=== PATIENT | male | born 1970 | race Caucasian/White ===

== ENCOUNTER 2025-03-11 05:00 | Emergency (ER) | payer BC, SELFPAY ==
--- OUTSIDE RECORDS SUMMARY | 2021-07-03 09:01 | XMS_ITS | Continuity of Care Document ---
Author Organization [facility] Address [address] [address] [place] [address] Phone Care Team Providers Care Dining Room Host Name Role Phone Unavailable Unavailable Unavailable Allergies, Adverse Reactions, Alerts Substance Reaction Status Criticality No Known Allergies Active No Inform ation Medications Medication Instructions Dosage Effective Dates (start - stop) Status Comments No Drug Therapy Prescribed Procedures Procedure Date Colonoscopy Flex; W/bx 1/mx Level Iv-surg Path Gross/micro 21 Advance Directives Directive Yes / No Effective Date File Name No Information Encounters Encounter Description Practice Location Reason(s) For Visit Diagnoses Date Provider Providers Copied on Encounter [facility], [address] [address], [place], [place], [id number], [place] tel:[phone] [facility] No Information 1 No Information Referring Provider: Wendy Hernandez, [address] [facility] [address], [place], [address] . tel:[phone] [facility] ([place]) [facility], [address] [address], [place], [place], [id number], [place] tel:[phone] [facility] GI Symptoms or Concerns (chief complaint) Screening ColonoscopyColor ectal polyp detected on colonoscopyEncou nter for screening for malignant neoplasm of colonPolyp of colon Hillary Nguyen. [address] [facility] [address], [place], [place], [id number], [place]. tel:[phone] Referring Provider: Hubert Lee MD, [address] [place], [address]. tel:[phone] [facility], [address] [address], [place], [id number], [place] tel:[phone] [facility] No Information [address], [id number], [place]. tel:[phone] [facility], [address] [address], [place], [id number], [place] tel:[phone] [facility] No Information [address] [place] [address], [id number], [place]. tel:[phone] Family History Family Member Type Diagnosis Age At Onset No Information Immunizations Vaccine Date Status Comments SARS-COV-2 (COVID-19) vaccin e, mRNA, spike protein, LNP, preservative free, 30 mcg/0.3mL dose administered Note: [facility] bi-direct ional interface ; Source: Other Registry SARS-COV-2 (COVID-19) vaccin e, mRNA, spike protein, LNP, preservative free, 30 mcg/0.3mL dose administered Note: [facility] bi-direct ional interface ; Source: Other Registry zoster vaccine recombinant administered N ote: [facility] bi-directional interface ; Source: Other Registry zoster vaccine recombinant administered N ote: [facility] bi-directional interface ; Source: Other Registry Seasonal, quadrivalent, recombinant, injectable influenza vaccine, preservative free administered Note: [facility] bi-direct ional interface ; Source: Other Registry Afluria Qd administered Note: [facility] bi-directional interface ; Source: Other Registry Afluria Qd administered Note: [facility] bi-directional interface ; Source: Other Registry tetanus toxoid, reduced diphtheria toxoid, and acellular pertussis vaccine, adsorbed administered Note: [facility] b i-directional interface ; Source: Other Registry Influenza, seasonal, injecta ble, preservative free administered Note: [facility] bi-direct ional interface ; Source: Other Registry tetanus toxoid, reduced diphtheria toxoid, and acellular pertussis vaccine, adsorbed administered Note: [facility] b i-directional interface ; Source: Other Registry Payers Payer name Insurance type Covered constitution [facility] [id number] Social History Type Description Quantity Date Captured Comments Sex Male Smoking Status No Information Chief Complaint And Reason For Visit No Information Reason For Referral Reason For Referral No Information History Of Present Illness Encounter Date Complaint History Of Prese nt Illness GI Symptoms or Concerns Functional Status Date Functional Assessmen t No Information Medications Administered Medication Instructions Dosage Effective Dates (start - stop) Status Comments No Drug Therapy Prescribed Instructions Date Instruction Additional Infor katherine Colon Cancer Prevention Related to Colorectal polyp detected on colonoscopy Colon Polyps Related to Color ectal polyp detected on colonoscopy Assessments Type Assessment Date No Information Patient Care Teams Name Effective Dates (start - stop) Status Members No Information
[2025-03-11] VITALS (9 sets, daily range): BP systolic 161–167; BP diastolic 102–116; PULSE 65–80; RESP 14–28; TEMP 36.7; O2SAT 91–99; BMI 35.3
--- NOTE | 2025-03-11 05:33 | CRLHL7_ITS ---
For Patients: As a result of the Century Cures Act, medical imaging exams and procedure reports are released immediately into your electronic medical record. You may view this report before your referring provider. If you have questions, please contact your health care provider. INDICATION: Mid abdominal pain TECHNIQUE: CT abdomen and pelvis acquired with 128 cc Isovue 370 IV contrast. COMPARISON: None. FINDINGS: Lower chest: Unremarkable. Liver: Hepatic cyst in segment 8/5. Gallbladder and bile ducts: Gallbladder is distended without cholelithiasis or gallbladder wall edema. No biliary ductal dilation. Pancreas: Unremarkable. Spleen: Unremarkable. Adrenal glands: Unremarkable. Kidneys: Unremarkable. No suspicious masses, stones, or hydronephrosis. GI tract: No obstruction. No significant bowel inflammation. Minimal areas of fecalization of nondilated distal small bowel loops, which can be seen with slow transit. Normal appendix. Vasculature: Abdominal aorta is normal in caliber. Mesenteric arteries are patent. Lymph nodes: No lymphadenopathy. Peritoneum/Abdominal Wall: Unremarkable. No sign of mass or infiltration. No free air or significant free fluid. Pelvis: Unremarkable. Bones: Grade 2 anterolisthesis of L5 on S1 with bilateral pars interarticularis defects. Moderate degenerative disease of the spine at this level. IMPRESSION: No acute findings to explain symptoms. Please note that all CT scans at this facility use dose modulation, iterative reconstruction, and/or weight-based dosing when appropriate to reduce radiation dose to as low as reasonably achievable. Dictated by Marcia Gan MD @ 03/11/2025 6:29:42 AM (Electronically Signed)
--- NOTE | 2025-03-11 05:41 | ED_ITS ---
HPI - General Adult General Chief complaint: Abdominal Pain Stated complaint: Stomach cramps, vomiting Time Seen by Provider: 03/11/25 05:19 Source: patient and family Mode of arrival: ambulatory Limitations: no limitations History of Present Illness HPI narrative: 54-year-old male presents to the emergency department for evaluation of abdominal pain and nausea. This is been ongoing for about a week total. Sara ent had an episode similar to this where he had severe mid abdominal/epigastric area pain accompanied by nausea and vomiting. Symptoms prompted him to present [place] Patient bring some discharge paperwork that shows a CT scan, ultrasound and labs were completed. I do not have the results of those but he reports that everything was normal. He was given some pain medicine and anti nausea medicine and discharged home. Patient reports that he has felt ?off? all week. He has been a little queasy and mildly nauseated. He has not had pain until tonight. Tonight, he had pain started around 7:00 p.m., approximately 10 hours ago. He has not tried taking medication to help with his symptoms. No Tylenol, no ibuprofen, no Maalox or other similar typical treatments. He denies any prior history of abdominal surgery. He does not take any anticoagulants. His last meal was around 7:00 p.m.. No dysuria or lower abdominal pain. Nausea persists. No hematemesis. Denies bloody stools. No fever. No trauma. Did have 2 beers yesterday. Denies prior history of pancreatitis. He reports benign past medical history. He takes no long-term medications, has no allergies. He reports 2 uncomplicated knee replacement surgeries in the past. Nonsmoker. ROS is notable for the GI symptoms only, otherwise denies times 12 systems. Related Data Previous Rx's ?Medication ?Instructions ?Recorded hydrocodone 5 mg-acetaminophen 325 1 tab PO Q8H PRN pa in #7 tabs 03/11/25 mg tablet omeprazole 20 mg capsule,delayed 20 mg PO DAILY #30 ca ps 03/11/25 release Allergies Allergy/AdvReac Type Severity Reaction Status Date / Time No Known Drug Allergies Allergy Verified 03/11/25 05:13 PFSH PFS Social History Smoking Status: Never smoker Second hand tobacco smoke exposure: No How often do you have a drink containing alcohol: never AUDIT-C Alcohol total score: 0 Non-prescribed substance use: denies use Exam Const: Vital Signs, click to edit/add: Vital Signs - 24 hr 03/11/25 05:04 03/11/25 05:43 03/11/25 05:50 Temperature 98.0 F 98.0 F Pulse Rate Pulse Rate [Left P ulse Oximeter] 80 Respiratory Rate 28 H Blood Pressure Blood Pressure [Ri ght Upper Arm] 164/102 H Pulse Oximetry 98 98 Oxygen Delivery Me thod Room Air Oxygen Flow Rate 03/11/25 06:08 03/11/25 06:40 Temperature Pulse Rate 67 Pulse Rate [Left P ulse Oximeter] Respiratory Rate 14 Blood Pressure 165/107 H Blood Pressure [Ri ght Upper Arm] Pulse Oximetry 91 98 Oxygen Delivery Me thod Oxygen Flow Rate 2 Documenting provider has reviewed patient's vital signs: yes Other: Mild distress due to pain. Tries to get his significant other to answer most of his questions for him. Does appear well nourished and well hydrated. HENMT: Common normals: normocephalic, moist oral mucous membranes and oropharynx normal Head and scalp: normocephalic Mouth: oral and palatal mucosa normal Eye: Common normals: conjunctivae normal General eye: normal appearance of both eyes Conjunctiva: conjunctiva(e) normal Neck & C-Spine: Common normals: full ROM and no lymphadenopathy General: normal visual inspection Resp: Common normals: normal respiratory effort, no use of accessory muscles and clear to auscultation bilaterally Effort & inspection: able to speak in complete sentences Auscultation: clear to auscultation bilaterally Cardio: Common normals: regular rate, regular rhythm, S1 normal heart sound, S2 normal heart sound and no murmurs Rate: regular rate Rhythm: regular rhythm Heart sounds: S1 normal and S2 normal GI: Common normals: Normal to inspection, nondistended, normoactive bowel sounds present, soft to palpation, no hepatosplenomegaly and no masses Palpation: soft and no hepatosplenomegaly Other: Tender to epigastrium. No obvious mass. No organomegaly. : Common normals: no CVA tenderness Bladder/kidney exam: no CVA tenderness Back & Pelvis: Common normals: no CVA tenderness and thoracic and lumbar spine normal to inspection Extremity: Common normals: normal to inspection and normal capillary refill Neuro: Common normals: moves all extremities Psych: Common normals: thought process normal and cooperative Thought process: normal thought process Attention/concentration: attention grossly intact Memory/cognition: memory grossly intact Insight: fair Skin: Common normals: no rashes or lesions noted General skin exam: no rashes or lesions noted Course Course ED Course: 54-year-old male with 2nd episode of epigastric/mid abdominal pain suspicious for pancreatitis versus gallbladder disease. Cannot exclude bowel ischemia, gastritis, internal hernia, inflammatory bowel disease, enteritis, referred c hest or cardiac pathology, musculoskeletal etiology, amongst others. Patient is quite uncomfortable currently. Vitals are normal. Will place peripheral IV, give 0.5 mg of Dilaudid, 15 of Toradol and 4 of Zofran. Counseled patient that sometimes the imaging studies can be misleading early in the disease process and repeating these may be helpful. Recommend repeat cardiac and GI labs as well as repeat CT. Consider repeat ultrasound if nondiagnostic. We will not have ultrasound available for a couple of hours. Vital Signs Vital signs: Initial Vital Signs Temperature 98.0 F 03/11/25 05:04 Temperature Source Oral 03/11/25 05:04 Pulse Rate 80 03/11/25 05:04 Pulse Rhythm Regular 03/11/25 05:04 Respiratory Rate 28 H 03/11/25 05:04 Blood Pressure 164/102 H 03/11/25 05:04 Blood Pressure Mean 122 H 03/11/25 05:04 Blood Pressure Position Sitting 03/11/25 05:04 Pulse Oximetry 98 03/11/25 05:04 Oxygen Delivery Method Room Air 03/11/25 05:04 Vital Signs Temperature 98.0 F 03/11/25 05:04 Pulse Rate 80 03/11/25 05:04 Respiratory Rate 28 H 03/11/25 05:04 Blood Pressure 164/102 H 03/11/25 05:04 Pulse Oximetry 98 03/11/25 05:04 Oxygen Delivery Method Room Air 03/11/25 05:04 Temperature 98.0 F 03/11/25 05:43 Pulse Rate 67 03/11/25 06:08 Respiratory Rate 14 03/11/25 06:08 Blood Pressure 165/107 H 03/11/25 06:08 Pulse Oximetry 98 03/11/25 06:40 Oxygen Delivery Method Room Air 03/11/25 05:04 Oxygen Flow Rate 2 03/11/25 06:40 Medications Administered Medications: Discontinued Medications Generic Name Dose Route Start Last Admin Trade Name Orestes PRN Reason Stop Dose Admin Hydromorphone HCl 0.5 mg 03/11/25 05:33 03/11/25 05:44 Hydromorphone 0.5 Mg/0.5 Ml Inj IVP 03/11/25 05:34 0.5 mg ONCE ONE Administration Ketorolac Tromethamine 15 mg 03/11/25 05:33 03/11/25 05:43 Ketorolac 15 Mg/Ml Inj IVP 03/11/25 05:34 15 mg ONCE ONE Administration Ondansetron HCl 4 mg 03/11/25 05:33 03/11/25 05:43 Ondansetron 2 Mg/Ml Inj IVP 03/11/25 05:34 4 mg ONCE ONE Administration Medical Decision Making Lab Data Lab results reviewed: Yes I reviewed the patient's lab results Lab results narrative: Labs reassuring. No signs of significant inflammation, pancreatitis, biliary obstruction, elevated creatinine or electrolyte abnormalities. Labs: Lab Results 03/11/25 03/11/25 Range/Units 05:33 05:45 WBC 9.42 (4.50-11.00) K/uL RBC 5.60 (4.30-5.90) m/uL Hgb 16.6 (13.5-17.5) gm/dL Hct 47.6 (37.0-53.0) % MCV 85 (80-100) fL MCH 30 (26-34) pg MCHC 35 (32-36) gm/dL RDW Coeff of Gucci 12.3 (11.5-15.5) % Plt Count 217 (140-440) K/uL Neut % (Auto) 81.1 H (42.0-72.0) % Lymph % (Auto) 9.9 L (20-44) % Noble % (Auto) 7.3 (0.0-11.0) % Eos % (Auto) 1.2 (0.0-7.0) % Baso % (Auto) 0.3 (0.0-3.0) % Neut # (Auto) 7.60 H (1.7-7.0) K/uL Lymph # (Auto) 0.90 (0.90-2.90) K/uL Noble # (Auto) 0.70 (0.00-0.90) K/UL Eos # (Auto) 0.11 (0.00-0.50) K/uL Baso # (Auto) 0.03 (0.00-0.30) K/uL Abs Immat Gran (auto) 0.02 (0.00-0.30) K/uL Imm/Tot Granulo (auto) 0.2 % Sodium 135 (135-149) mmol/L Potassium 4.9 (3.6-5.1) mmol/L Chloride 103 (96-114) mmol/L Carbon Dioxide 21 (20-32) mmol/L Anion Gap 11 (7-15) mEq/L BUN 15 (7-30) mg/dL Creatinine 0.9 (0.5-1.5) mg/dL Estimated Creat Clear 100.59 Estimated GFR 100 ml/min Glucose 111 (60-115) mg/dL Lactate 2.7 H (0.5-1.9) mmol/L Calcium 9.8 (8.4-10.6) mg/dL Total Bilirubin 1.6 H (0.1-1.5) mg/dL AST 39 H (12-35) U/L ALT 26 (4-50) U/L Alkaline Phosphatase 76 (40-150) U/L C-Reactive Protein 1.6 H (0.5-1.0) mg/dL Total Protein 8.7 H (6.0-8.3) g/dL Albumin 4.8 (3.3-5.0) g/dL Lipase 106 (23-300) U/L POC Troponin I 0.00 L (0.01-0.04) ng/ml Imaging Data CT scan - abdomen: Attestation: I have reviewed the pertinent imaging results. My impression: Normal CT. Radiologist's impression: IMPRESSION: No acute findings to explain symptoms. Please note that all CT scans at this facility use dose modulation, iterative reconstruction, and/or weight-based dosing when appropriate to reduce radiation dose to as low as reasonably achievable. Dictated by Marcia Gan MD @ 03/11/2025 6:29:42 AM Discharge Plan Discharge Clinical Impression: Gastritis Patient Disposition: Home w/ Parent or Adult Condition: Improved Instructions: Gastritis (DC), Diet for Stomach Ulcers and Gastritis (ED), Upper Endoscopy (DC) Additional Instructions: As we discussed, thankfully the emergency room workup was benign again today. There are no signs of severe infection, severe inflammation, pancreatitis, liver disease or other abnormalities. This is great news. I suspect you have gastritis which would not be easily seen on the CT scans or ultrasound that you have already had performed. This is best diagnosed by direct visualization through an endoscopy which is similar to a colonoscopy but visualizes the stomach instead. I would like for you to schedule this with her primary care team. In the interim, I want you to start taking omeprazole 20 mg once daily, 30 minutes before bedtime every night for at least the next 4 weeks. Absolutely no alcohol or carbonated beverages. If the pain becomes severe again, I a.m. giving you a small supply of hydrocodone tablets to use. There are additional biopsies, studies and other workup that would typically be done for this complaint that cannot be performed in a small [facility] emergency room. As we discussed, additionally I would consider doing a HIDA scan which is a different study on the gallbladder if the stomach workup is negative. Activity Level: No Restrictions Prescriptions: New hydrocodone-acetaminophen 5-325 mg tablet 1 tab PO Q8H PRN (Reason: pain) Qty: 7 0RF omeprazole 20 mg capsule,delayed release(DR/EC) 20 mg PO DAILY Qty: 30 3RF Follow Up/Referrals: Provider,Not a Local [Primary Care Provider, Family Practice] Stand Alone Forms: Video Blocks Info Instructions
[2025-03-11] MEDS: ONDANSETRON 2 MG/ML inj 4 MG IVP (05:43)
--- OUTSIDE RECORDS SUMMARY | 2025-03-11 05:44 | XMS_ITS | Encounter Summary ---
Author Organization [facility] Address [address] [place] [address]. [place] [address] Care Team Providers Care Retail Experience Specialist Name Role Phone Morteza Ash MD Primary Care Provider [phone] Hubert Lee MD Primary Care Provider [phone] Hubert Lee MD Unavailable Hubert Lee MD Unavailable Hubert Lee MD Unavailable Antony Buckner MD Unavailable [phone] [facility] Unavail able Joanne Still MD Unavailable Encounter Details Date Type Department Care Team (Late st Contact Info) Description 06/24/2012 MyC Medical Advice [address] [address] [facility] Social History Tobacco Use Types Packs/Day Years Used Date Smoking Tobacco: Never Smokeless Tobacco: Never Alcohol Use Standard Drinks/Week Comments Yes 0 (1 standard drink = 0.6 oz pur e alcohol) occas Sex and Gender Information Value Date Recorded Sex Assigned at Male 12/28/2020 10:12 PM CDT 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 Gender Identity Male 11/30/2020 8:12 AM CDT Sexual Orientation Straight 05/06/2019 3: 41 PM CDT documented as of this encounter Plan of Treatment Not on file documented as of this encounter Visit Diagnoses Not on filedocumented in this encounter Additional Health Concerns Infection Onset Date Last Indicated Resolved Time COVID-19 Comment:Per [facility] on 11/30/20, patient had a positive COVID test on 11/21/20 11/21/2020 12/01/2020 12/11/2020 11:40 PM CDT COVID-19 02/14/2021 02/14/2021 03/07/2021 11:3 9 PM CDT documented as of this encounter Care Teams Retail Experience Specialist Relationship Specialty Start Date End Date Morteza Ash MD PCP - General 12/22/07 10/22/15 Hubert Lee MD [address] [place] [address] [place] [address] PCP - General Internal Medicine 10/23/15 Hubert Lee MD [address] [place] [address] [place] [address] PCP - Assigned PCP 10/07/16 10/27/18 Hubert Lee MD [address] [place] [address] [place] [address] Assigned PCP 10/07/16 10/24/18 Hubert Lee MD [address] [place] [address] [place] [address] Assigned PCP 05/16/19 02/14/24 Antony Buckner MD [address] [place] [address] Assigned Musculoskeletal Provider 01/21/21 07/19/22 Clinic - [facility] [address] [place] [address] Assigned PCP 09/16/24 11/13/24 [place] [address] [place] [place] [address] Assigned PCP 11/14/24 documented as of this encounter
--- OUTSIDE RECORDS SUMMARY | 2025-03-11 05:44 | XMS_ITS | Encounter Summary ---
Author Organization [facility] Address [address] [place] [address]. [place] [address] Care Team Providers Care Tufter Operator Name Role Phone Hubert Lee MD Primary Care Provider [phone] Hubert Lee MD Unavailable Antony Buckner MD Unavailable [phone] [facility] Unavail able Joanne Still MD Unavailable Encounter Details Date Type Department Care Team (Late st Contact Info) Description 06/13/2022 MyC Medical Advice [address] [place] [id number] Joceline Han, AUTHORIZATION MANAGER Social History Tobacco Use Types Packs/Day Years Used Date Smoking Tobacco: Never Smokeless Tobacco: Never Comments:n/a Alcohol Use Standard Drinks/Week Comments Yes 0 (1 standard drink = 0.6 oz pur e alcohol) social - couple of time / wk PHQ-2 Answer Date Recorded PHQ-2 Score 0 12/29/2020 Sex and Gender Information Value Date Recorded Sex Assigned at Male 12/28/2020 10:12 PM CDT 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 Gender Identity Male 11/30/2020 8:12 AM CDT Sexual Orientation Straight 05/06/2019 3: 41 PM CDT documented as of this encounter Plan of Treatment Not on file documented as of this encounter Visit Diagnoses Not on filedocumented in this encounter Care Teams Tufter Operator Relationship Specialty Start Date End Date Hubert Lee MD [facility] [place] [address] PCP - General Internal Medicine 10/23/15 Hubert Lee MD [address] [place] [address] [place] [address] Assigned PCP 05/16/19 02/14/24 Antony Buckner MD [address] [place] [address] Assigned Musculoskeletal Provider 01/21/21 07/19/[address] [address] Assigned PCP 09/16/24 11/13/24 [place] [address] [place] [address] Assigned PCP 11/14/24 documented as of this encounter
--- OUTSIDE RECORDS SUMMARY | 2025-03-11 05:44 | XMS_ITS | Patient Health Record ---
Author Organization [facility] Address [address] [place] [address] Care Team Providers Care Line Ordering Clinician Name Role Phone Hubert Lee Primary Care Provider MJ Cortes Unavailable [phone] None, None Unavailable Unavailable Reason For Referral No Information Social History Social History : Social Info Question Answer Notes How often do you consume alcohol? Answer: less th an 6 per week Recreational drug use Social Info Question Answer Notes Did you ever use recreationa l drugs? Answer: No Additional Details Category Social Info Options Details Occupation Current occupation: [employer] Problems Problem Type SNOMED Code ICD Code Onset Dates Problem Status W/U Status Risk Notes Problem Deviated nasal septum (653665816) Deviated nasal septum (J34.2) Active confirmed Problem Snoring (34524607) Snoring (R06.83) Active confirmed Problem Allergic rhinitis (89909817) Allergic rhinitis (J30.9) Active confirmed Problem Hypertrophy of tonsils (93357842) Hypertrophy tonsils (J35.1) Active confirmed Problem Sleep apnea (44093455) Sleep apnea (G47.30) Active confirmed Problem Hypertrophy of nasal turbinates (11070676) Hypertrophy of inferior nasal turbinate (J34.3) Active confirmed Plan Of Treatment No Information Insurance Providers Payer Name Payer Address Payer Phone Subscriber Number Group Number Insured Name Patient Relationship to Insured Coverage Start Date Coverage End Date [employer] [address] [address] [place] [address] [phone] [id number] Montel[place] Self - patient is the insured Medical (General) History Medical History History ICD Code ANGELIKA Surgical History Surgery Date(Month/Year) Knee surgery x 3
--- OUTSIDE RECORDS SUMMARY | 2025-03-11 05:44 | XMS_ITS | Encounter Summary ---
Author Organization [place] Address [address] [place] [address]. [place] [address] Care Team Providers Care Supervisor Power Reactor Name Role Phone Hubert Lee MD Primary Care Provider [phone] Hubert Lee MD Unavailable Hubert Lee MD Unavailable Hubert Lee MD Unavailable Antony Buckner MD Unavailable [phone] [facility] Unavail able Joanne Still MD Unavailable Reason for Visit * Reason Onset Date Comments MyChart Communication 10/29/2015 Lab result s Encounter Details Date Type Department Care Team (Latest Contact Info) Description 10/29/2015 MyC Medical Advice [address] [place] [address] Hubert Lee MD [address] [place] [address] [place] [address] MyChart Communication (Lab results) Social History Tobacco Use Types Packs/Day Years Used Date Smoking Tobacco: Never Smokeless Tobacco: Never Alcohol Use Standard Drinks/Week Comments Yes 0 (1 standard drink = 0.6 oz pur e alcohol) occas Sex and Gender Information Value Date Recorded Sex Assigned at Male 12/28/2020 10:12 PM CDT 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 Lee, please see/advise on pt's [employer] message. Would a telephone visit maybe be appropriate? Asuncion Vazquez, RN, BSN NG MILL SET UP OPERATOR VERTICAL documented in this encounter Plan of Treatment Not on [...] documented as of this encounter Care Teams Supervisor Power Reactor Relationship Specialty Start Date End Date Hubert Lee MD [address] [place] [address] [place] [address] PCP - General Internal Medicine 10/23/15 Hubert Lee MD [address] [place] [address] [place] [address] PCP - Assigned PCP 10/07/16 10/27/18 Hubert Lee MD [address] [place] [address] [place] [address] Assigned PCP 10/07/16 10/24/18 Hubert Lee MD [address] [place] [address] [place] [address] Assigned PCP 05/16/19 02/14/24 Antony Buckner MD [address] [place] [address] Assigned Musculoskeletal Provider 01/21/21 07/19/22 [facility] - [address] [id number] Assigned PCP 09/16/24 11/13/24 [place] [address] [place] [address] Assigned PCP 11/14/24 documented as of this encounter
--- OUTSIDE RECORDS SUMMARY | 2025-03-11 05:44 | XMS_ITS | Encounter Summary ---
Author Organization [place] Address [address] [place] [address]. [place] [address] Care Team Providers Care Repair Table Operator Name Role Phone Morteza Ash MD Primary Care Provider [phone] Hubert Lee MD Primary Care Provider [phone] Hubert Lee MD Unavailable Hubert Lee MD Unavailable Hubert Lee MD Unavailable Antony Buckner MD Unavailable [phone] [facility] Unavail able Joanne Still MD Unavailable Encounter Details Date Type Department Care Team (Late st Contact Info) Description 02/20/2012 MyC Medical Advice [address] [address] [facility] Social History Tobacco Use Types Packs/Day Years Used Date Smoking Tobacco: Never Smokeless Tobacco: Never Alcohol Use Standard Drinks/Week Comments Yes 0 (1 standard drink = 0.6 oz pur e alcohol) Sex and Gender Information Value Date Recorded Sex Assigned at Male 12/28/2020 10:12 PM CDT 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 Gender Identity Male 11/30/2020 8:12 AM CDT [...] documented as of this encounter Care Teams Repair Table Operator Relationship Specialty Start Date End Date Morteza Ash MD PCP - General 12/22/07 10/22/15 Hubert Lee MD [address] [place] [address] [place] [address] PCP - General Internal Medicine 10/23/15 Hubert Lee MD [address] [place] [address] [place] [address] PCP - Assigned PCP 10/07/16 10/27/18 Hubert Lee MD [address] [place] [address] [place] [address] Assigned PCP 10/07/16 10/24/18 Hubert Lee MD [address] [place] [address] [place] [address] Assigned PCP 05/16/19 02/14/24 Antony Buckner MD [address] [place] [address] Assigned Musculoskeletal Provider 01/21/21 07/19/22 [facility] [place] [id number] [place] [address] Assigned PCP 09/16/24 11/13/24 [place] [address] [facility] [address] Assigned PCP 11/14/24 documented as of this encounter
--- OUTSIDE RECORDS SUMMARY | 2025-03-11 05:44 | XMS_ITS | Encounter Summary ---
Author Organization [place] Address [address] [place] [address]. [place] [address] Care Team Providers Care Enterprise Cloud Architect Name Role Phone Morteza Ash MD Primary Care Provider Hubert Lee MD Primary Care Provider [phone] Hubert Lee MD Unavailable Hubert Lee MD Unavailable Hubert Lee MD Unavailable Antony Buckner MD Unavailable [phone] [facility] Unavail able Joanne Still MD Unavailable Encounter Details Date Type Department Care Team (Late st Contact Info) Description 02/25/2012 MyC Medical Advice [address] [place] [address] Morteza Ash MD [address] [place] [address] [place] [address] Social History Tobacco Use Types Packs/Day Years Used Date Smoking Tobacco: Never Smokeless Tobacco: Never Alcohol Use Standard Drinks/Week Comments Yes 0 (1 standard drink = 0.6 oz pur e alcohol) occas Sex and Gender Information Value Date Recorded Sex Assigned at Male 12/28/2020 10:12 PM CDT 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 Gender Identity Male 11/30/2020 8:12 AM CDT Sexual Orientation Straight 05/06/2019 3 :41 PM CDT documented as of this encounter [...] documented as of this encounter Care Teams Enterprise Cloud Architect Relationship Specialty Start Date End Date Morteza Ash MD PCP - General 12/22/07 10/22/15 Hubert Lee MD [address] [place] [address] [place] [address] PCP - General Internal Medicine 10/23/15 Hubert Lee MD [address] [place] [address] [place] [address] PCP - Assigned PCP 10/07/16 10/27/18 Hubert Lee MD [address] [place] [address] [place] [address] Assigned PCP 10/07/16 10/24/18 Hubert Lee MD [address] [place] [address] [place] [address] Assigned PCP 05/16/19 02/14/24 Antony Buckner MD [address] [place] [address] Assigned Musculoskeletal Provider 01/21/21 07/19/22 [facility] [address] [address] Assigned PCP 09/16/24 11/13/24 [place] [address] [facility] [address] Assigned PCP 11/14/24 documented as of this encounter
--- OUTSIDE RECORDS SUMMARY | 2025-03-11 05:44 | XMS_ITS | Encounter Summary ---
Author Organization [place] Address [address] [place] [address]. [place] [address] Care Team Providers Care Language Instructor Name Role Phone Hubert Lee MD Primary Care Provider [phone] Hubert Lee MD Unavailable Antony Buckner MD Unavailable [phone] [facility] Unavail able Joanne Still MD Unavailable Reason for Visit * Reason Comments Medication Refill Encounter Details Date Type Department Care Team (Late st Contact Info) Description 03/24/[address] [place] [address] Hubert Lee MD [address] [place] [address] [place] [address] Medication Refill Social History Tobacco Use Types Packs/Day Years [...] PM CDT 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 * Telephone Encounter - Jaqueline Crawford MD - 03/28/2022 9:11 AM CDT Xochilt refill. No more refills until appt with Dr. Lee. Please schedule physical. Jaqueline Crawford MD Internal Medicine/Pediatrics [facility] * Telephone Encounter - Denis Tillman RN - 03/28/2022 7:55 AM CDT Routing refill request to provider for review/approval because: Xochilt given x1 and patient did not follow up, please advise Patient needs to be seen because it has been more than 1 year since last office visit. Denis Nguyen RN documented in this encounter Plan of Treatment Not on file documented as of this encounter Visit Diagnoses Diagnosis Erectile dysfunction, unspecified erectile dysfunction type documented in this encounter Care Teams Language Instructor Relationship Specialty Start Date End Date Hubert Lee MD [address] [facility] [place] [address] PCP - General Internal Medicine 10/23/15 Hubert Lee MD [address] [facility] [place] [address] Assigned PCP 05/16/19 02/14/24 Antony Buckner MD [address] [place] [address] Assigned Musculoskeletal Provider 01/21/21 07/19/22 [facility] [address] [place] [address] Assigned PCP 09/16/24 11/13/24 [place] [address] [address] [place] [address] Assigned PCP 11/14/24 documented as of this encounter
--- OUTSIDE RECORDS SUMMARY | 2025-03-11 05:44 | XMS_ITS | Encounter Summary ---
Author Organization [place] Address [address] [place] [address]. [place] [address] Care Team Providers Care Adult High School Instructor Name Role Phone Hubert Lee MD Primary Care Provider [phone] Hubert Lee MD Unavailable Antony Buckner MD Unavailable [phone] [facility] Unavail able Joanne Still MD Unavailable Reason for Visit * Reason Comments Medication Refill Encounter Details Date Type Department Care Team (Late st Contact Info) Description 11/24/[address] [place] [address] Hubert Lee MD [address] [place] [address] [place] [address] Medication Refill Social History Tobacco Use Types Packs/Day Years Used Date Smoking Tobacco: Never Smokeless Tobacco: Never Comments:n/a Alcohol Use Standard Drinks/Week Comments Yes 0 (1 standard drink = 0.6 oz pur e alcohol) social - couple of time / wk PHQ-2 Answer Date Recorded PHQ-2 Score 0 05/06/2019 Sex and Gender Information Value Date Recorded Sex Assigned at Male 12/28/2020 10:12 PM CDT 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 Ramona Brito RN documented in this encounter Plan of Treatment Not on file documented as of this encounter Visit Diagnoses Diagnosis Erectile dysfunction, unspecified erectile dysfunction type documented in this encounter Additional Health Concerns Infection Onset Date Last Indicated Resolved Time COVID-19 Comment:Per [facility] H[facility] on 11/30/20, patient had a positive COVID test on 11/21/20 11/21/2020 12/01/2020 12/11/2020 11:40 PM CDT COVID-19 02/14/2021 02/14/2021 03/07/2021 11:3 9 PM CDT documented as of this encounter Care Teams Adult High School Instructor Relationship Specialty Start Date End Date Hubert Lee MD [address] [facility] [place] [address] PCP - General Internal Medicine 10/23/15 Hubert Lee MD [address] [place] [address] [place] [address] Assigned PCP 05/16/19 02/14/24 Antony Buckner MD [address] [place] [address] Assigned Musculoskeletal Provider 01/21/21 07/19/22 [facility] - [address] [address] Assigned PCP 09/16/24 11/13/24 [place] [address] [place] [address] Assigned PCP 11/14/24 documented as of this encounter
--- OUTSIDE RECORDS SUMMARY | 2025-03-11 05:44 | XMS_ITS | Encounter Summary ---
Author Organization [place] Address [address] [place] [address]. [place] [address] Care Team Providers Care Pusher Runner Name Role Phone Hubert Lee MD Primary Care Provider [phone] Hubert Lee MD Unavailable Antony Buckner MD Unavailable [phone] [facility] Unavail able Joanne Still MD Unavailable Reason for Visit * Reason Comments Medication Refill Encounter Details Date Type Department Care Team (Late st Contact Info) Description 06/10/[address] [place] [address] Jaqueline Crawford MD [address] [place] [address] [place] [address] Medication Refill Social History Tobacco Use Types [...] PM CDT 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 Joceline Han LPN * Telephone Encounter - Roxanne Rashid RN - 06/12/2022 3:06 PM CDT Pt overdue for annual visit, routed to to schedule, vangie rx sent last time Roxanne Rashid RN, BSN [facility] documented in this encounter Plan of Treatment Not on file documented as of this encounter Visit Diagnoses Diagnosis Erectile dysfunction, unspecified erectile dysfunction type documented in this encounter Care Teams Pusher Runner Relationship Specialty Start Date End Date Hubert Lee MD [address] [place] [address] [place] [address] PCP - General Internal Medicine 10/23/15 Hubert Lee MD [address] [place] [address] [place] [address] Assigned PCP 05/16/19 02/14/24 Antony Buckner MD [address] [place] [address] Assigned Musculoskeletal Provider 01/21/21 07/19/22 Clinic - [facility] [address] [place] [address] Assigned PCP 09/16/24 11/13/24 [place] [address] [place] [address] Assigned PCP 11/14/24 documented as of this encounter
--- OUTSIDE RECORDS SUMMARY | 2025-03-11 05:44 | XMS_ITS | Encounter Summary ---
Author Organization [place] Address [address] [place] [address]. [place] [address] Care Team Providers Care Process Design Chemical Engineer Name Role Phone Hubert Lee MD Primary Care Provider [phone] Hubert Lee MD Unavailable Antony Buckner MD Unavailable [phone] [facility] Unavail able Joanne Still MD Unavailable Reason for Visit * Reason Comments Medication Refill Encounter Details Date Type Department Care Team (Late st Contact Info) Description 10/05/[address] [place] [address] Hubert Lee MD [address] [place] [address] [place] [id number] Medication Refill Social History Tobacco Use Types [...] PM CDT Legal 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 Gender Identity Male 11/30/2020 8:12 AM CDT [...] documented as of this encounter Care Teams Process Design Chemical Engineer Relationship Specialty Start Date End Date Hubert Lee MD [address] [facility] [place] [address] PCP - General Internal Medicine 10/23/15 Hubert Lee MD [address] [place] [address] [place] [address] Assigned PCP 05/16/19 02/14/24 Antony Buckner MD [address] [place] [address] Assigned Musculoskeletal Provider 01/21/21 07/19/22 [facility] [address] [place] [address] Assigned PCP 09/16/24 11/13/24 [place] [address] [place] [address] Assigned PCP 11/14/24 documented as of this encounter
--- OUTSIDE RECORDS SUMMARY | 2025-03-11 05:44 | XMS_ITS | Encounter Summary ---
Author Organization [place] Address [address] [place] [address]. [place] [address] Care Team Providers Care Vice President Global Advertising Sales Name Role Phone Hubert Lee MD Primary Care Provider [phone] Hubert Lee MD Unavailable Antony Buckner MD Unavailable [phone] [facility] Unavail able Joanne Still MD Unavailable Reason for Visit * Reason Comments Medication Refill Encounter Details Date Type Department Care Team (Late st Contact Info) Description 11/25/[address] [place] [address] Hubert Lee MD [address] [place] [address] [place] [address] Medication Refill Social History Tobacco Use Types [...] PM CDT Legal Sex Male 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 * Telephone Encounter - Celeste Spann RN - 11/27/2020 11:10 AM CDT 3 month vangie refill approved. MA/TC: Please assist patient in scheduling office visit. Celeste Spann RN on 11/27/2020 at 11:10 AM documented in this encounter Plan of Treatment [...] documented as of this encounter Care Teams Vice President Global Advertising Sales Relationship Specialty Start Date End Date Hubert Lee MD [address] [place] [address] [place] [address] PCP - General Internal Medicine 10/23/15 Hubert Lee MD [address] [facility] [place] [address] Assigned PCP 05/16/19 02/14/24 Antony Buckner MD [address] [place] [address] Assigned Musculoskeletal Provider 01/21/21 07/19/22 [facility] [address] [place] [address] Assigned PCP 09/16/24 11/13/24 [place] [address] [place] [address] Assigned PCP 11/14/24 documented as of this encounter
--- OUTSIDE RECORDS SUMMARY | 2025-03-11 05:44 | XMS_ITS | Encounter Summary ---
Author Organization [place] Address [address] [place] [address]. [place] [address] Care Team Providers Care Embroidery Patternmaker Name Role Phone Hubert Lee MD Primary Care Provider [phone] Hubert Lee MD Unavailable Antony Buckner MD Unavailable [phone] [facility] Unavail able Joanne Still MD Unavailable Encounter Details Date Type Department Care Team (Late st Contact Info) Description 04/08/2019 MyC Medical Advice [facility] [address] [place] [address] [address] [place] [address] Hubert Lee MD [address] [place] [address] [place] [address] Social History Tobacco Use Types Packs/Day Years Used Date Smoking Tobacco: Never Smokeless Tobacco: Never Alcohol Use Standard Drinks/Week Comments Yes 0 (1 standard drink = 0.6 oz pur e alcohol) occas PHQ-2 Answer Date Recorded PHQ-2 Score 2 09/08/2018 Sex and Gender Information Value Date Recorded Sex Assigned at Male 12/28/2020 10:12 PM CDT 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 Gender Identity Male 11/30/2020 8:12 AM CDT [...] documented as of this encounter Care Teams Embroidery Patternmaker Relationship Specialty Start Date End Date Hubert Lee MD [address] [facility] [place] [address] PCP - General Internal Medicine 10/23/15 Hubert Lee MD [address] [place] [address] [place] [address] Assigned PCP 05/16/19 02/14/24 Antony Buckner MD [address] [place] [address] Assigned Musculoskeletal Provider 01/21/21 07/19/22 [facility] [address] [address] [place] [address] Assigned PCP 09/16/24 11/13/24 [place] [address] [place] [address] Assigned PCP 11/14/24 documented as of this encounter
--- OUTSIDE RECORDS SUMMARY | 2025-03-11 05:44 | XMS_ITS | Encounter Summary ---
Author Organization [place] Address [address] [place] [address]. 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 Gender Identity Male 11/30/2020 8:12 AM CDT Sexual Orientation Straight 05/06/2019 3: 41 PM CDT documented as of this encounter Plan of Treatment Not on file documented as of this encounter Visit Diagnoses Not on filedocumented in this encounter Care Teams Miter Cutter Relationship Specialty Start Date End Date Hubert Lee MD [address] [facility] [place] [address] PCP - General Internal Medicine 10/23/15 Hubert Lee MD [address] [facility] [place] [address] Assigned PCP 05/16/19 02/14/24 Antony uBckner MD [address] [place] [address] Assigned Musculoskeletal Provider 01/21/21 07/19/22 [facility] [id number] [place] [address] Assigned PCP 09/16/24 11/13/24 [place] [address] [place] [address] Assigned PCP 11/14/24 documented as of this encounter
--- OUTSIDE RECORDS SUMMARY | 2025-03-11 05:44 | XMS_ITS | Clinical Summary ---
Author Organization [facility] Address [address] [place] [address]. 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 Lee before next refill. 6 tablet 1 4 Active sildenafil (REVATIO) 20 MG tabletIndication s:Erectile dysfunction, unspecified erectile dysfunction type Take 1 tablet (20 mg) by mouth daily as needed (ED) 45 tablet 3 4 Active Active Problems Patient Care Coordination No te Formatting of this note migh t be different from the original. [email or web address] Problem Noted Date Diagnosed Date Pneumonia due to 2019 novel coronavirus 12/01/19 21 Anxiety 12/14/2015 Obesity due to excess calori es, unspecified obesity severity 12/14/2015 Knee pain 03/03/2012 HYPERLIPIDEMIA LDL GOAL <160 10/04/2009 Mixed hyperlipemia 01/11/2008 Overview (01/11/2008): Cardiac Risk Factors: none; goal LDL < 160; [place] 10-year Cardiac Risk Score of 3% Allergic rhinitis due to pollen 01/03/2006 Overview (01/03/2006): Tree pollens, cat dander, ragweed, dust mites Hypersomnia with sleep apnea Overview (05/25/2015): tried CPAP; limited by poor nasal airflow Problem list name updated by automated process. Provider to review Resolved Problems Problem Noted Date Diagnosed Date Resolved Date Acute respiratory failure with hypoxia 11/30/2020 12/11/2020 Pain in joint, shoulder region 10/28/2014 04/16/2016 Other postprocedural status(V45.89) 03/03/2012 05/07/2019 Immunizations Immunization Administration Dates Next Due COVID-19 12+ (Pfizer) 08/26/2024 COVID-19 MONOVALENT 12+ (Pfizer) 01/26/2021,12/23 Influenza (IIV3) PF 05/29/2013 Influenza (prior to 2023) 06/30/2014 Influenza Vaccine 18-64 (Flublok) 05/07/2019 Influenza Vaccine >6 months,quad, PF 06/03/2022, 07/08/2017 Influenza Vaccine Trivalent (FluBlok) 08/26/2024 TDAP Vaccine (Adacel) 10/23/2015,01/08/2008 Zoster recombinant adjuvanted (Shingrix) 020,05/10/2019 Family History Medical History Relation Comments Hyperlipidemia Brother Hypertension Brother Musculoskeletal Disorder Father Eveline on's Unknown/Adopted Father Parkinson's Diabetes Mother C.A.D. Paternal Grandfather Cancer - colorectal No family hx of Relation Status Comments Brother Father Mother Paternal Grandfather Social History Tobacco Use Types Packs/Day Years Used Date Smoking Tobacco: Never Smokeless Tobacco: Never Tobacco Cessation:Counseling Given: Not Answered Comments:n/a Alcohol Use Standard Drinks/Week Comments Yes 0 (1 standard drink = 0.6 oz pur e alcohol) social - couple of time / wk PHQ-2 Answer Date Recorded PHQ-2 Score 0 08/26/2024 Adolescent Education Answer Date Record ed Getting School Help Needed Not on file 05/28 Interpersonal Safety Answer Date Record ed Do you feel physically and e motionally safe where you currently live? Yes 08/26/2024 Within the past 12 months, h ave you been hit, slapped, kicked or otherwise physically hurt by someone? No 08/26/2024 Within the past 12 months, h ave you been humiliated or emotionally abused in other ways by your partner or ex-partner? No 08/26/2024 Sex and Gender Information Value Date Recorded Sex Assigned at Male 12/28/2020 10:12 PM CDT Legal Sex Male 4:42 AM [employer]CE [employer] Gender Identity Male 11/30/2020 8:12 AM CDT Sexual Orientation Straight 05/06/2019 3: 41 PM CDT Last Filed Vital Signs Vital Sign Reading Time Taken Comments Blood Pressure 130/92 10/20/2024 2:48 PM [employer] Pulse 80 10/20/2024 3:28 PM [employer] Temperature 36.7 C (98 F) 10/20/2024 2:48 PM [employer] Respiratory Rate 14 10/20/2024 2:48 PM [employer] Oxygen Saturation 97% 10/20/2024 2:48 PM [employer]NA[employer] Inhaled Oxygen Concentration - - Weight 122.1 kg (269 lb 3.2 oz) 10/20/2024 2:48 PM [employer] Height 180.3 cm (5' 11) 10/20/2024 2:48 PM [employer] Body Mass Index 37.55 10/20/2024 2:48 PM [employer] Plan of Treatment Health Maintenance Due Date Last Done Comments CT COLONOGRAPHY 1968 FIT 1968 FLEX SIG 1968 sDNA (Cologuard) 1968 HEPATITIS B VACCINE (1 of 3 - 19+ 3-dose series) 12/16/1987 PNEUMOCOCCAL VACCINE 50+ YEARS (1 of 1 - PCV) 2018 ANNUAL REVIEW OF HM ORDERS 12/29/2021 12/29/2020 YEARLY PREVENTIVE VISIT 12/29/2021 12/30/19 21, 05/07/2019, 10/23/2015, Additional history exists INFLUENZA VACCINE (#1) 2025 , 06/03/2022, 05/07/2019, Additional history exists DTAP/TDAP/TD VACCINE (3 - Td or Tdap) 10/22/2025 10/23/2015, 01/08/2008 LIPID 12/29/2025 12/29/2020, 04/26, 10/24/2015, Additional history exists DIABETES SCREENING 10/20/2027 10/20/2024, 0 08/26/2024, 12/29/2020, Additional history exists ADVANCE CARE PLANNING 08/26/2029 08/26/2024, 021 COLONOSCOPY 07/03/2031 07/03/2021 COLORECTAL CANCER SCREENING 07/03/2031 HIV SCREENING Completed 05/14/2019 ZOSTER VACCINE Completed 09/28/2019, 05/10/2019 HEPATITIS C SCREENING Completed 12/29/2020 COVID-19 VACCINE Completed 08/26/2024, , 08/20/2021, Additional history exists PHQ-2 (once per calendar year) Completed 08/26/2024, 12/29/2020, 12/11/2020, Additional history exists HPV VACCINE Aged Out No longer eligi ble based on patient's age to complete this topic MENINGITIS VACCINE Aged Out No longer eligible based on patient's age to complete this topic Procedures Procedure Name Priority Date/Time Associated Diagnosis Comments BASIC METABOLIC PANEL Routine 10/20/2024 3:31 PM [employer] Preop general physical exam COLONOSCOPY - HIM SCAN 07/03/2021 12:00 AM [employer] HEPATITIS C ANTIBODY Routine 12/29/2020 8:45 AM CDT Routine general medical examination at a health care facility LIPID REFLEX TO DIRECT LDL PANEL Routine 12/29/2020 8:45 AM CDT Routine general medical examination at a health care facility HIV ANTIGEN ANTIBODY COMBO Routine 05/14/2019 8:49 AM CDT Routine general medical examination at a health care facility from Last 3 Months or Most Recently Relevant to Health Maintenance Results * (ABNORMAL) Basic metabolic panel (Ca, Cl, CO2, Creat, Gluc, K, Na, BUN) (10/20/2024 3:31 PM [employer]) Sodium 140 135 - 145 mmol/L 10/21/2024 12:16 AM [facility] Potassium 4.6 3.4 - 5.3 mmol/L 10/21/2024 12:16 AM [facility] Chloride 103 98 - 107 mmol/L 10/21/2024 12:16 AM [facility] [employer] Carbon Dioxide (CO2) 27 22 - 29 mmol/L 10/21/2024 12:16 AM [facility] [employer] Anion Gap 10 7 - 15 mmol/L 10/21/2024 12:16 AM [facility] [employer] Urea Nitrogen 19.1 6.0 - 20.0 mg/dL 10/21/2024 12:16 AM [facility] [employer] Creatinine 0.94 0.67 - 1.17 mg/dL 10/21/2024 12:16 AM [facility] [employer] GFR Estimate >90 >60 mL/min/1.7 3m2 10/21/2024 12:16 AM [employer] [employer] Comment:eGFR calculated 2020 CKD-EPI equation. Calcium 9.9 8.8 - 10.4 mg/dL 10/21/2024 12:16 AM [facility] [employer] Glucose 107(H) 70 - 99 mg/dL 10/21/2024 12:16 AM [employer] [employer] Blood BLOOD SPECIMEN / Unknown Venipuncture / Unknown 10/20/2024 3:31 PM [employer] 10/20/2024 3:31 PM [employer] Joanne Still MD LAB - BLOOD ORDERABLES Final Res ult [facility] [address] [facility], [address] [id number] * COLONOSCOPY - HIM SCAN (07/03/2021 12:00 AM F[employer]NACE T[employer]PER) 07/03/2021 us Provider Outside PROCEDURES Final Result * (ABNORMAL) Lipid panel reflex to direct LDL Fasting (12/29/2020 8:45 AM CDT) Cholesterol 282(H) <200 mg/dL 12/29/2020 3:07 PM CDT [facility] Comment:Desirable: <200 mg/d l Triglycerides 108 <150 mg/dL 12/29/2020 3:07 PM CDT [facility] Comment:Fasting specimen HDL Cholesterol 54 >39 mg/dL 3:07 PM CDT [facility] LDL Cholesterol Calculated 207(H) <100 mg/dL 12/29/2020 3:09 PM CDT [facility] Comment: Above desirable: 100-129 mg/dl Borderline High: 130-159 mg/dL High: 160-189 mg/dL Very high: >189 mg/dl Non HDL Cholesterol 229(H) <130 mg/dL 12/29/2020 3:07 PM CDT [facility] Comment: Above Desirable: 130-159 mg/dl Borderline high: 160-189 mg/dl High: 190-219 mg/dl Very high: >219 mg/dl Blood 12/29/2020 8:45 AM CDT 12/29/2020 8:46 AM CDT us Hubert Lee MD LAB - BLOOD ORDERABLES Final Res ult [facility] [address] [place] [address] * Hepatitis C antibody (12/29/2020 8:45 AM CDT) Hepatitis C Antibody Nonreactive NR^Nonre active 12/29/2020 4:57 PM CDT [facility] Comment: Assay performance characteristics have not been established for newborns, infants, and children Blood 12/29/2020 8:45 AM CDT 12/29/2020 8:46 AM CDT us Hubert Lee MD LAB - BLOOD ORDERABLES Final Res ult [facility] [address] [place] [address] * HIV Screening (05/14/2019 8:49 AM CDT) HIV Antigen Antibody Combo Nonreactive NR^Nonrea ctive 05/14/2019 4:10 PM CDT [facility] Comment:HIV-1 p24 Ag & HIV-1 /HIV-2 Ab Not Detected Blood specimen (specimen) 05/14/2019 8:49 AM CDT 05/14/2019 8:51 AM CDT Hubert Lee MD LAB - BLOOD ORDERABLES Final Res ult [facility] [address] [place] [address] from Last 3 Months or Most Recently Relevant to Health Maintenance Insurance [employer] OUT OF STATE Advance Directives For more information, please contact: [phone] * Full Code (Latest Code Status on File) Date Activated Date Inactivated Comments 11/30/2020 8:23 PM 12/04/2020 12:31 PM All basic an d advanced life-sustaining interventions are performed as appropriate Question Answer Comments Code status determined by: Discussion with patie nt/ legal decision maker * Full Code Date Activated Date Inactivated Comments 02/24/2012 11:49 AM 11/30/2020 11:48 AM Care Teams Text[employer]er Relationship Specialty Start Date End Date Hubert Lee MD [address] [place] [address] PCP - General Internal Medicine 10/23/15 [place] [id number] [address] Assigned PCP 11/14/24
[2025-03-11 05:58] LABS: Troponin, Point-of-Care* 0.00 ng/ml (0.01-0.04)
[2025-03-11 06:08] LABS: Lactate* 2.7 mmol/L (0.5-1.9)
[2025-03-11 06:21] LABS: Hematocrit 47.6 % (37.0-53.0); Hemoglobin* 16.6 gm/dL (13.5-17.5); Immature Granulocytes Abs Auto 0.02 K/uL (0.00-0.30); Immature Granulocytes Pct Auto 0.2 %; Mean Corpuscular HGB Conc 35 gm/dL (32-36); Mean Corpuscular Hemoglobin 30 pg (26-34); Mean Corpuscular Volume 85 fL (80-100); RDW Coefficient of Variation % 12.3 % (11.5-15.5); Red Blood Count 5.60 m/uL (4.30-5.90); White Blood Count* 9.42 K/uL (4.50-11.00)
[2025-03-11 06:22] LABS: Lymphocytes Absolute Auto 0.90 K/uL (0.90-2.90); Slide Review Reflex No
[2025-03-11 06:45] LABS: Albumin* 4.8 g/dL (3.3-5.0); Chloride* 103 mmol/L (96-114); Potassium* 4.9 mmol/L (3.6-5.1); Sodium* 135 mmol/L (135-149)
[2025-03-11 06:48] LABS: Alanine Aminotransferase* 26 U/L (4-50); Alkaline Phosphatase* 76 U/L (40-150); Anion Gap 11 mEq/L (7-15); Aspartate Amino Transferase* 39 U/L (12-35); Bilirubin Total* 1.6 mg/dL (0.1-1.5); Blood Urea Nitrogen* 15 mg/dL (7-30); Calcium* 9.8 mg/dL (8.4-10.6); Carbon Dioxide* 21 mmol/L (20-32); Creatinine* 0.9 mg/dL (0.5-1.5); Est. Creatinine Clearance* 100.59; Estimated Glomerular Filt Rate 100 ml/min; Glucose* 111 mg/dL (60-115); Total Protein* 8.7 g/dL (6.0-8.3)
[2025-03-11] MEDS: LACTATED RINGERS 1000 ML 1,000 ML IV (07:06)
[2025-03-11] MEDS: HYDROCODONE-ACETAMIN 5-325 MG 1 TAB 2 TAB PO (07:09)
[2025-03-11] MEDS: OMEPRAZOLE 20 MG CAPSULE DR PO (07:09)
== END 2025-03-11 08:00 | disposition home or self-care (01) ==
PROVIDERS: Emergency Provider Family Medicine
DX: K29.70 Gastritis, unspecified, without bleeding (principal)
CPT/HCPCS: 36415; 74177; 80053; 81003; 83605; 83690; 84484; 85025; 86140; 93005; 94761; 96374; 96375; 99284; 99285; A9270; J1171; J1885; J2405; J7120; Q9967